=== PATIENT | female | born 1945 | race Caucasian/White ===

== ENCOUNTER 2016-10-01 07:02 | Day surgery (SDC) | payer MEDICARE, OTHER ==
--- NOTE | 2016-09-30 11:07 | PREOPHP ---
DATE OF ADMISSION: 10/01/2016 HISTORY OF PRESENT ILLNESS: This 71-year-old patient is admitted for elective cataract surgery of the right eye. The patient has had progressive deterioration of vision in both eyes over the past 6 months' time. The patient denies prior history of eye disease or injury. The patient's systemic h istory is positive for hypertension, hypercholesterolemia, and depressive disorder. CURRENT MEDICATIONS: Includes 1. Atenolol. 2. Lipitor. 3. Lexapro. ALLERGIES: THE PATIENT IS ALLERGIC TO MORPHINE. PHYSICAL EXAMINATION: The visual acuity with best correction is 20/200 in the right eye and 20/70 i n the left eye. Slit lamp examination reveals advanced nuclear sclerotic cataracts present in both eyes. Applanation tonometry is 18 mmHg. Examination of the retina is within normal limits. DIAGNOSIS: Cataract, right eye. PLAN: Cataract extraction with lens implant, right eye. The risks and alternatives to the surgery have been discussed with the patient as well as the hope for improvement of visual acuity leading to a greater ability to perform activities of daily living. The patient understands this and agrees t o proceed with surgery. Dictated By: JAYDEN BEAVERS/MARILYN Conf#: [id number] DID#: [id number]
[~2016-10-01] VITALS: Ht 172.7 cm; Wt 89.0 kg
[2016-10-01] VITALS (7 sets, daily range): BP systolic 111–152; BP diastolic 58–83; PULSE 58–73; RESP 16–24; Ht 172.7 cm; Wt 89.0 kg
[~2016-10-01 07:02] MED LIST: BROMFENAC SODIUM OPER SCH; CIPROFLOXACIN 0.3% 2.5 ML OPH OPER SCH; CYCLOPENTOLATE/PHENYLEPH 2 ML OPH OPER SCH; DICLOFENAC 0.1% 2.5 ML OPH OPER SCH; TROPICAMIDE 1% 2 ML OPH OPER SCH
[2016-10-01] MEDS ORDERED: ATOR40TA68 PO (07:38)
[2016-10-01] MEDS ORDERED: ATEN50TA PO (07:38)
[2016-10-01] MEDS ORDERED: ESCI20TA PO (07:39)
[2016-10-01] MEDS ORDERED: ZOLP12.52 PO (07:40)
[2016-10-01] MEDS ORDERED: LIDOCAINE 4% (MPF) 5 ML INJ ONE (09:08)
[2016-10-01] MEDS ORDERED: CARBACHOL 0.01% 1.5 ML OPH INJ ONE (09:08)
[2016-10-01] MEDS ORDERED: HYALURONATE/CHONDROITIN 1ML OPH INJ ONE (09:08)
[2016-10-01] MEDS ORDERED: DEXAMETHASONE 4 MG/ML 1 ML INJ ONE (09:08)
[2016-10-01 09:10] LABS: BASOPHILS % 0.5 % (0.0-2.0); EOSINOPHILS # 0.1 10^3/ul (0.0-0.5); EOSINOPHILS % 1.5 % (0.0-7.0); HEMATOCRIT 37.2 % (37.0-47.0); HEMOGLOBIN 12.5 g/dl (12.0-16.0); LYMPHOCYTES # 1.8 10^3/ul (0.8-2.9); MEAN CORPUSCULAR HGB CONC 33.7 g/dl (32.0-37.0); MEAN CORPUSCULAR VOLUME 94.9 fl (82.0-101.0); MEAN PLATELET VOLUME 9.6 fl (7.4-10.4); MONOCYTE # 0.5 10^3/ul (0.3-0.9); MONOCYTES % 10.1 % (0.0-11.0); NEUTROPHIL # 2.8 10^3/ul (1.6-7.5); NEUTROPHILS % 52.9 % (39.0-77.0); PLATELET COUNT 184 10^3/UL (140-440); RED BLOOD COUNT 3.92 10^6/ul (4.20-5.40); RED CELL DISTRIBUTION WIDTH 14.4 % (11.5-14.5); UNCORRECTED WBC 5.3 10^3/ul (4.8-10.8); WHITE BLOOD COUNT 5.3 10^3/ul (4.8-10.8)
[2016-10-01 09:19] LABS: POTASSIUM 4.6 mmol/L (3.5-5.1)
[2016-10-01] MEDS ORDERED: PROPOFOL 20 ML ONE (09:19)
[2016-10-01] MEDS ORDERED: FENTAnyl 50 MCG/ML VIAL ONE (09:20)
[2016-10-01 09:25] LABS: CONDITION 1
[2016-10-01 09:28] LABS: INR 0.96; PARTIAL THROMBOPLASTIN TIME 26.5 Sec (25.0-35.0); PROTIME 12.8 Sec (12.2-14.2)
[2016-10-01 09:29] LABS: CREATININE 0.71 mg/dl (0.44-1.00)
[2016-10-01] MEDS ORDERED: CEFAZOLIN 1 GM INJ INJ ONE (09:52)
[2016-10-01] MEDS ORDERED: HYDROmorphONE (0.2 MG/ML) 10ML SYG IV PRN ×3 (10:00)
[2016-10-01] MEDS ORDERED: METOCLOPRAMIDE 10 MG INJ IV PRN (10:00)
[2016-10-01] MEDS ORDERED: ONDANSETRON 4 MG INJ IV PRN (10:00)
--- NOTE | 2016-10-01 12:32 | OPR ---
DATE OF OPERATION: 10/01/2016 PREOPERATIVE DIAGNOSIS: Cataract, right eye. POSTOPERATIVE DIAGNOSIS: Cataract, right eye. SURGEON: Jayden Bunch MD KNOWLEDGE MANAGER: ANESTHESIA: Local standby. ANESTHESIOLOGIST: Christin Nash MD OPERATION: Cataract extraction with lens implant, right eye. PROCEDURE: The patient was brought to the operating room and placed on the table with an IV in plac e and the patient attached to an monitoring manager. Oxygen was given via face mask. After some intravenous sedation was administered, local anesthesia was given using Xylocaine 2% with epinephrine, mixed with Marcaine 0.5%. This was given in a lid block and retrobulbar injection. The patient was then prepped and draped in the usual sterile manner. A wire lid speculum was inserted between the lids of the right eye. A SuperBlade was used to enter t he anterior chamber at the corneoscleral limbus at the 10:30 o'clock position. A separate incision w as made using a 3.0-mm keratome which entered the corneoscleral junction at the 12 o'clock position. Through this 3-mm opening, an irrigating cystotome was introduced into the anterior chamber. The ch supriya was filled with Viscoat and an anterior capsulotomy was performed. Balanced salt solution was then used for hydrodissection of the lens. A phacoemulsification handpiece was then brought into th e field and introduced into the anterior chamber. The lens nucleus was emulsified using a deep groov e and cracking the nucleus into quadrants. Following this, each quadrant was aspirated and emulsifie d at the pupillary margin. Attention was then turned to removal of epinuclear and lens cortical material. It was noted that th ere was a diagonal break in the posterior capsule while doing this portion of the procedure and some anterior vitreous presented at the lips of the wound. A limited anterior vitrectomy was performed using mechanical vitrectomy instrumentation. Following this, it was noted that sufficient lens caps ular support remained. After this was completed, the irrigation/aspiration handpiece was brought to the field, introduced i nto the posterior chamber, and the lens cortical material was removed. When this was completed, aurelio tional Viscoat was injected into the anterior and posterior chambers. The 3-mm opening had its internal lips enlarged, and then the posterior chamber intraocular lens david suring 21.0 diopters ([employer] LI61AO) was then injected into the posterior chamb er using the lens injector system. After the leading haptic was introduced into the capsular bag and the lens optic was present in the center of the eye, the injector was removed and the trailing hapt ic was grasped with non-toothed forceps and introduced into the capsular fold superiorly. A Sinskey hook was then used to rotate the intraocular lens so that the lips were oriented in the horizontal m eridian. One 10-0 nylon suture was placed across the wound. Prior to tying, the irrigation/aspiration handpiece was reintroduced into the anterior chamber to re move the Viscoat. Miochol was instilled to constrict the pupil, and then the 10-0 nylon suture was t ied. The ends were cut short and then the knot was buried. Then, 0.5 mL of dexamethasone and 0.5 mL of Ancef were injected into the sub-Tenon space in the infe rior fornix. Ciloxan drops were then placed on the surface of the eye. The speculum was removed and a patch was applied. The patient then left the operating room in satisfactory condition. Dictated By: JAYDEN BEAVERS/MAIRLYN Conf#: [id number] DID#: [id number]
== END 2016-10-01 11:15 | disposition home or self-care (01) ==
LOC: SDS 07:02
PROVIDERS: ATTEND Ophthalmology
DX: H25.11 Age-related nuclear cataract, right eye (principal); I10 Essential (primary) hypertension; E78.00 Pure hypercholesterolemia, unspecified; F32.9 Major depressive disorder, single episode, unspecified
CPT/HCPCS: 66984; 80048; 85025; 85610; 85730; J0690; J1100; J3010; V2632